=== PATIENT | male | born 1995 | race American Indian/Alaskan Native ===

== ENCOUNTER → 2020-10-19 | Outpatient (CLI) | payer OTHER ==
[~2020-10-19] MED LIST: ESOM20 PO; PROM25 PO
== END | disposition home or self-care (01) ==
LOC: LAB SHORT 16:12
DX: M79.672 Pain in left foot (principal)
CPT/HCPCS: 84550

== ENCOUNTER 2020-12-08 19:02 | Emergency (ER) | payer OTHER ==
[2020-12-09] MEDS ORDERED: CYMBALTA30 M2 PO (12:25)
[2020-12-09] MEDS ORDERED: METFORMIN HCL500 M3 PO (12:25)
== END 2020-12-08 19:05 | disposition left against medical advice (07) ==
LOC: ER 19:02
DX: Z53.21 Procedure and treatment not carried out due to patient leaving prior to being seen by health care provider (principal)

== ENCOUNTER 2020-12-09 09:28 | Inpatient (IN) | payer OTHER ==
[~2020-12-09] VITALS: Ht 175.3 cm; Wt 166.2 kg
[2020-12-09 11:38] LABS: BASOPHILS ABSOLUTE AUTO 0.02 K/mm3 (0.00-0.23); BASOPHILS PERCENT AUTO 0 % (0-2); EOSINOPHILS ABSOLUTE AUTO 0.03 K/mm3 (0.00-0.68); EOSINOPHILS PERCENT AUTO 0 % (0-6); Hematocrit 38.2 % (37.0-53.0); Hemoglobin 12.5 g/dL (13.5-17.5); IMMATURE GRAN ABSOLUTE AUTO 0.15 K/mm3 (0.00-0.10); IMMATURE GRAN PERCENT AUTO 2 % (0-1); LYMPHOCYTES ABSOLUTE AUTO 1.18 K/mm3 (0.84-5.20); LYMPHOCYTES PERCENT AUTO 13 % (21-46); MONOCYTES ABSOLUTE AUTO 0.76 K/mm3 (0.16-1.47); MONOCYTES PERCENT AUTO 8 % (4-13); Mean Corpuscular HGB 26.4 pg (26.0-34.0); Mean Corpuscular HGB Conc 32.7 g/dL (31.5-36.5); Mean Corpuscular Volume 81 fL (80-100); Mean Platelet Volume 10.1 fL (9.1-12.4); NEUTROPHILS ABSOLUTE AUTO 7.05 K/mm3 (1.96-9.15); NEUTROPHILS PERCENT AUTO 77 % (41-73); Platelet Count 350 K/mm3 (150-400); RDW Coefficient Variation 14.1 % (11.7-14.2); RDW Standard Deviation 41.8 fL (35.1-46.3); Red Blood Cell Count 4.73 M/mm3 (4.30-5.90); White Blood Cell Count 9.19 K/mm3 (4.00-11.30)
[2020-12-09 11:58] LABS: D-Dimer, Quantitative 3.99 mg/L FEU (0.00-0.52); International Normalized Ratio 1.11; Prothrombin Time Results 11.9 Sec (9.7-11.5)
[2020-12-09 12:02] LABS: Alanine Aminotransfer (ALT/SGP 76 U/L (12-78); Albumin, Blood 2.4 g/dL (3.4-5.0); Albumin/Globulin Ratio 0.5 (0.8-1.8); Alk Phos 57 U/L (50-136); Anion Gap 4 mmol/L (6-16); Aspartate Aminotrans (AST/SGOT 34 U/L (12-37); Bilirubin, Total 0.7 mg/dL (0.1-1.0); Blood Urea Nitrogen 7 mg/dL (8-24); Bun/Creatinine Ratio 11.6 (12.0-20.0); CO2, Blood 30 mmol/L (21-32); Calcium, Blood 8.2 mg/dL (8.5-10.1); Chloride, Blood 105 mmol/L (98-108); Globulin, Blood 4.4 g/dL (2.2-4.0); Glomerular Filtration Rate >60 (60-); Glucose, Blood 91 mg/dL (70-99); Potassium, Blood 3.5 mmol/L (3.5-5.5); Sodium, Blood 139 mmol/L (136-145); Total Protein, Blood 6.8 g/dL (6.4-8.2); Troponin I <0.015 ng/mL (0.000-0.040)
[2020-12-09] MEDS ORDERED: METFORMIN HCL500 M3 PO (12:25)
[2020-12-09] MEDS ORDERED: CYMBALTA30 M2 PO (12:25)
--- NOTE | 2020-12-09 16:45 | NUR ---
SHIFT SUMMARY PT ARRIVED TO UNIT FROM ED @ APPROX 1330. REMAINS ON 9 L/MIN OXYMIZER AND SATING @ 90-91%. LS DIMINISHED T/O. REMDESIVER, LOVENOX, AND DECADRON STARTED. PT IS CURRENTLY RESTING IN BED, ABLE TO USE URINAL INDEPENDENTLY. DENIES ANY DISTRESS OR WORSENING OF SYMPTOMS. CALLS APPROPRIATELY, CALL LIGHT WITHIN REACH.
[2020-12-10 05:41] LABS: BASOPHILS ABSOLUTE AUTO 0.03 K/mm3 (0.00-0.23); BASOPHILS PERCENT AUTO 0 % (0-2); EOSINOPHILS PERCENT AUTO 0 % (0-6); Hematocrit 37.6 % (37.0-53.0); Hemoglobin 12.1 g/dL (13.5-17.5); IMMATURE GRAN ABSOLUTE AUTO 0.19 K/mm3 (0.00-0.10); IMMATURE GRAN PERCENT AUTO 2 % (0-1); LYMPHOCYTES ABSOLUTE AUTO 1.13 K/mm3 (0.84-5.20); LYMPHOCYTES PERCENT AUTO 13 % (21-46); MONOCYTES ABSOLUTE AUTO 0.79 K/mm3 (0.16-1.47); MONOCYTES PERCENT AUTO 9 % (4-13); Mean Corpuscular HGB 26.5 pg (26.0-34.0); Mean Corpuscular HGB Conc 32.2 g/dL (31.5-36.5); Mean Corpuscular Volume 83 fL (80-100); Mean Platelet Volume 10.5 fL (9.1-12.4); NEUTROPHILS ABSOLUTE AUTO 6.61 K/mm3 (1.96-9.15); NEUTROPHILS PERCENT AUTO 76 % (41-73); Platelet Count 370 K/mm3 (150-400); RDW Coefficient Variation 14.2 % (11.7-14.2); RDW Standard Deviation 42.3 fL (35.1-46.3); Red Blood Cell Count 4.56 M/mm3 (4.30-5.90); White Blood Cell Count 8.75 K/mm3 (4.00-11.30)
[2020-12-10 06:08] LABS: Alanine Aminotransfer (ALT/SGP 89 U/L (12-78); Albumin, Blood 2.3 g/dL (3.4-5.0); Albumin/Globulin Ratio 0.5 (0.8-1.8); Alk Phos 54 U/L (50-136); Anion Gap 5 mmol/L (6-16); Aspartate Aminotrans (AST/SGOT 32 U/L (12-37); Bilirubin, Total 0.6 mg/dL (0.1-1.0); Blood Urea Nitrogen 13 mg/dL (8-24); CO2, Blood 31 mmol/L (21-32); Calcium, Blood 8.5 mg/dL (8.5-10.1); Chloride, Blood 106 mmol/L (98-108); Creatinine, Blood 0.65 mg/dL (0.60-1.20); Globulin, Blood 4.3 g/dL (2.2-4.0); Glomerular Filtration Rate >60 (60-); Glucose, Blood 116 mg/dL (70-99); Magnesium, Blood 2.2 mg/dL (1.6-2.4); Potassium, Blood 3.8 mmol/L (3.5-5.5); Sodium, Blood 142 mmol/L (136-145); Total Protein, Blood 6.6 g/dL (6.4-8.2)
--- NOTE | 2020-12-10 06:35 | NUR ---
SHIFT SUMMARY: CONTINUOUS DIAPHORITIC T/O NOC. TEMP DIFFICULT TO GET DUE TO EXCESSIVE AMOUNT OF SWEATING. DID GIVE TYELENOL TO SEE IF IT HELPED, NO CHANGES. DRINKING PLENTY OF WATER. BLOOD SUGAR NORMAL. STATES HE HAS BEEN POURING SWEAT SINCE THIS STARTED. PALE MOST OF THE TIME. STATES HE FEELS OK. LUNG SOUNDS VERY DIMINISHED, TIGHT. SATS >90 ON 12 LITERS. DESATS EVEN STANDING TO USE URINAL, DROPPED DOWN TO 70%, HAD TO INCREASE O2 TILL STABLIZED THEN BACK DOWN TO 12 LITERS OXIMIZER. NO PAIN OR DISCOMFORT. CALL LIGHT IS IN REACH.
--- NOTE | 2020-12-10 18:34 | NUR ---
NO CHANGES THIS SHIFT. PT CONTINUES ON 13 L, DESATS WHEN UP TO MID 70'S, RECOUPS WELL/FAST BACK TO MID 90'S WHEN BACK IN BED. PT ATE ALL THREE MEALS, WAS COOPERATIVE WITH CARE, MADE NO COMPLAINTS THIS SHIFT. BED IN LOW POSITION AND CALL LIGHT WITHIN REACH. STAFF WILL CONTINUE TO MONITOR.
[2020-12-11 05:38] LABS: BASOPHILS ABSOLUTE AUTO 0.04 K/mm3 (0.00-0.23); BASOPHILS PERCENT AUTO 0 % (0-2); EOSINOPHILS ABSOLUTE AUTO 0.01 K/mm3 (0.00-0.68); EOSINOPHILS PERCENT AUTO 0 % (0-6); Hematocrit 40.1 % (37.0-53.0); Hemoglobin 12.6 g/dL (13.5-17.5); IMMATURE GRAN ABSOLUTE AUTO 0.34 K/mm3 (0.00-0.10); IMMATURE GRAN PERCENT AUTO 3 % (0-1); LYMPHOCYTES ABSOLUTE AUTO 1.65 K/mm3 (0.84-5.20); LYMPHOCYTES PERCENT AUTO 15 % (21-46); MONOCYTES ABSOLUTE AUTO 0.65 K/mm3 (0.16-1.47); MONOCYTES PERCENT AUTO 6 % (4-13); Mean Corpuscular HGB 26.1 pg (26.0-34.0); Mean Corpuscular HGB Conc 31.4 g/dL (31.5-36.5); Mean Corpuscular Volume 83 fL (80-100); Mean Platelet Volume 10.5 fL (9.1-12.4); NEUTROPHILS ABSOLUTE AUTO 8.09 K/mm3 (1.96-9.15); NEUTROPHILS PERCENT AUTO 75 % (41-73); Platelet Count 448 K/mm3 (150-400); RDW Coefficient Variation 14.1 % (11.7-14.2); Red Blood Cell Count 4.82 M/mm3 (4.30-5.90); White Blood Cell Count 10.78 K/mm3 (4.00-11.30)
[2020-12-11 05:51] LABS: International Normalized Ratio 1.11; Prothrombin Time Results 11.9 Sec (9.7-11.5)
--- NOTE | 2020-12-11 05:51 | NUR ---
SHIFT SUMMARY: DECREASE IN OXYGEN ASSUMPTION TO 10 LITERS HOLDING SATS AT 94-95%. DID DESAT TO 88% WHEN HE STOOD UP, BUT RECOVERED INSTANTLY. LUNG SOUNDS DIMINISHED BUT CLEAR. STATES HE FEELS HE IS BREATHING BETTER. ENCOURAGED MORE FLUID INTAKE DUE TO DECREASE URINE OUTPUT, DARK IN COLOR. ENCOURAGED PRONEING. CURRENTLY SLEEPING UP RIGHT. NO OTHER CHANGES TO NOTE. CALL LIGHT IN REACH.
[2020-12-11 06:07] LABS: Anion Gap 6 mmol/L (6-16); Blood Urea Nitrogen 16 mg/dL (8-24); Bun/Creatinine Ratio 23.1 (12.0-20.0); CO2, Blood 29 mmol/L (21-32); Calcium, Blood 8.7 mg/dL (8.5-10.1); Chloride, Blood 104 mmol/L (98-108); Creatinine, Blood 0.69 mg/dL (0.60-1.20); Glomerular Filtration Rate >60 (60-); Glucose, Blood 123 mg/dL (70-99); Magnesium, Blood 2.4 mg/dL (1.6-2.4); Phosphorus, Blood 3.7 mg/dL (2.5-4.9); Potassium, Blood 3.9 mmol/L (3.5-5.5); Sodium, Blood 139 mmol/L (136-145)
--- NOTE | 2020-12-11 16:10 | NUR ---
SHIFT SUMMARY NO ACUTE CHANGES NOTED TO PT THIS SHIFT. PT AAOX4, ABLE TO MAKE NEEDS KNOWN. INDEPENDENT IN THE ROOM. NO C/O PAIN THIS SHIFT. NO C/O CP OR N&V. SOB WITH EXERTION NOTED. PT REMAINS AT 10L O2 VIA OXYMIZER SATTING 91-93%. PT CONTINUES ON IV ABX ORDERED, NO ASE NOTED. BED AT LOWEST POSITION. CALL LIGHT WITHIN REACH.
[2020-12-12 05:40] LABS: BASOPHILS ABSOLUTE AUTO 0.03 K/mm3 (0.00-0.23); BASOPHILS PERCENT AUTO 0 % (0-2); EOSINOPHILS ABSOLUTE AUTO 0.03 K/mm3 (0.00-0.68); EOSINOPHILS PERCENT AUTO 0 % (0-6); Hematocrit 39.5 % (37.0-53.0); Hemoglobin 12.4 g/dL (13.5-17.5); IMMATURE GRAN ABSOLUTE AUTO 0.49 K/mm3 (0.00-0.10); IMMATURE GRAN PERCENT AUTO 4 % (0-1); LYMPHOCYTES ABSOLUTE AUTO 2.38 K/mm3 (0.84-5.20); LYMPHOCYTES PERCENT AUTO 20 % (21-46); MONOCYTES ABSOLUTE AUTO 1.01 K/mm3 (0.16-1.47); MONOCYTES PERCENT AUTO 9 % (4-13); Mean Corpuscular HGB Conc 31.4 g/dL (31.5-36.5); Mean Corpuscular Volume 83 fL (80-100); Mean Platelet Volume 10.3 fL (9.1-12.4); NEUTROPHILS ABSOLUTE AUTO 7.82 K/mm3 (1.96-9.15); NEUTROPHILS PERCENT AUTO 66 % (41-73); Platelet Count 456 K/mm3 (150-400); RDW Coefficient Variation 14.2 % (11.7-14.2); RDW Standard Deviation 42.6 fL (35.1-46.3); Red Blood Cell Count 4.77 M/mm3 (4.30-5.90); White Blood Cell Count 11.76 K/mm3 (4.00-11.30)
[2020-12-12 06:05] LABS: Anion Gap 5 mmol/L (6-16); Blood Urea Nitrogen 18 mg/dL (8-24); Bun/Creatinine Ratio 24.2 (12.0-20.0); CO2, Blood 29 mmol/L (21-32); Calcium, Blood 8.4 mg/dL (8.5-10.1); Chloride, Blood 106 mmol/L (98-108); Creatinine, Blood 0.75 mg/dL (0.60-1.20); Glomerular Filtration Rate >60 (60-); Glucose, Blood 93 mg/dL (70-99); Sodium, Blood 140 mmol/L (136-145)
--- NOTE | 2020-12-12 08:06 | NUR ---
SHIFT SUMMARY: IMPROVEMENT IN BREATHING. LUNG SOUNDS ARE CLEAR BUT TIGHT AT TIMES. DECREASE IN OXYGEN TO 5 LITERS ON NC. STATES HE FEELS HE CAN BREATH BETTER. DID SLEEP SOME BUT HAS DIFFICULT TIME DUE TO ROOM MATE MAKING NOISES. DOES HAVE EAR PLUGS TO HELP. SATS HAVE MAINTAINED AT 92% ON THE 5 LITERS. NO PAIN NOTED. DOES NEED TO HAVE BM BUT I THINK IS EMBARRED TO HAVE USING A COMMODE IN THE ROOM WITH A ROOM MATE. ENCOURAGE HIM TO USE THE BATHROOM EVEN THOUGH HE SHARES IT. HE SAID HE WILL TRY BUT WILL NEED HELP. ENCOURAGED HIM TO DO SOME STANDING AND DANGLE ON SIDE OF BED TODAY FOR ENDURANCE. CALL LIGHT IN REACH.
--- NOTE | 2020-12-12 16:14 | NUR ---
SHIFT SUMMARY PT AAOX4, ABLE TO MAKE NEEDS KNOWN. PLEASANT AND COOPERATIVE TO CARE. NO C/O PAIN OR ANY DISCOMFORT THIS SHIFT. NO C/O CP OR N&V. SOB W/ EXERTION NOTED. PT ON 8LPM O2 VIA NC SATS 91-93% PT SBA TO BATHROOM. PT HAD XLARGE BM THIS SHIFT. BED AT LOWEST POSITION. CALL LIGHT WITHIN REACH.
--- NOTE | 2020-12-13 04:58 | NUR ---
SHIFT SUMMARY AOX4. VSS. SPO2 90-96% ON 6L O2. LUNGS DIM T/O. DENIES SOB @REST. E/U RESPIRATIONS. DENIES PAIN, N/V OR DIARRHEA. CALL LIGHT IN REACH & PT ABLE TO MAKE NEEDS KNOWN. WCTM.
--- NOTE | 2020-12-13 17:38 | NUR ---
PT AOX4 AND COOPERTIVE OF CARE. PT HAS BEEN MAINTAINING AT 93-94% ON NASAL CANNULA @ 6L. PT INDEPENDENT IN ROOM. NO DISTRESS NOTED AT THIS TIME WILL CONTINUE TO MONITOR.
--- NOTE | 2020-12-14 06:12 | NUR ---
SHIFT SUMMARY NO ACUTE CHANGES THIS SHIFT. PT STATES HE FEELS BETTER. TITRATED O2 TO 5L VIA NC & SPO2 91-96% T/O NIGHT. DENIES PAIN, N/V OR SOB. CALL LIGHT IN REACH.
[2020-12-14] MEDS ORDERED: ACET325 PO (11:20)
[2020-12-14] MEDS ORDERED: DEXA2 PO (11:21)
--- NOTE | 2020-12-14 12:15 | NUR ---
HOME O2 EVAL: 87% ON RA AT REST, 4L02 TO MAINTAIN SATS >90% AT REST. 90-92% ON 6LO2 WHILE AMBULATING WITHIN ROOM.
--- NOTE | 2020-12-14 16:11 | NUR ---
DISCHARGE DISCHARGE MEDICATIONS AND INSTRUCTIONS EXPLAINED TO PATIENT. PATIENT STATED UNDERSTANDING. HOME 02 EVAL COMPLETED. [facility] DELIVERED PORTABLE OXYGEN FOR RIDE HOME. IV'S REMOVED WITHOUT ISSUE. BELONGINGS WITH PATIENT TRANSFERED TO PRIVATE VEHICLE VIA WHEELCHAIR.
== END 2020-12-14 16:05 | disposition home or self-care (01) | DRG 177 ==
LOC: ER 09:28 → ERHOLD 12:19 → MEDS 12:19 → ENPENDDIS 12-14 12:15 → MEDS 12-14 16:05
PROVIDERS: Emergency Medicine; Family Medicine; Nurse Practitioner Acute Care; ADMIT Internal Medicine
PROC: XW033E5 Introduction of Remdesivir Anti-infective into Peripheral Vein, Percutaneous Approach, New Technology Group 5 (ICD-10-PCS; principal; 2020-12-09)
PROC: 3E0333Z Introduction of Anti-inflammatory into Peripheral Vein, Percutaneous Approach (ICD-10-PCS; 2020-12-09)
PROC: 8E0ZXY6 Isolation (ICD-10-PCS; 2020-12-09)
DX: U07.1 COVID-19 (principal); J12.82 Pneumonia due to coronavirus disease 2019; J96.01 Acute respiratory failure with hypoxia; Z68.43 Body mass index [BMI] 50.0-59.9, adult; E11.9 Type 2 diabetes mellitus without complications; F32.9 Major depressive disorder, single episode, unspecified; G47.9 Sleep disorder, unspecified; E66.01 Morbid (severe) obesity due to excess calories; Z71.3 Dietary counseling and surveillance; Z79.899 Other long term (current) drug therapy; Z79.84 Long term (current) use of oral hypoglycemic drugs
CPT/HCPCS: 36415; 71045; 80048; 80053; 82947; 83735; 83880; 84100; 84145; 84484; 85025; 85379; 85610; 85651; 85730; 86140; 94762; 96365; 96366; 96375; 99285-25; A9270; J1100; J1650; J1940